=== PATIENT | male | born 1970 | race Caucasian/White ===

== ENCOUNTER → 2016-07-30 | Outpatient (CLI) | payer OTHER ==
[2016-07-30 16:54] LABS: APPEARANCE CLEAR/COLORLESS
[2016-07-30 17:01] LABS: RED CELL DILUTION 1
[2016-07-30 17:02] LABS: CSF EOSINOPHILS 0 % (0-25); MONO RAW COUNT 1; MONONUCLEAR WBC'S 100 % (50-90); POLYNUCLEAR WBC'S 0 % (0-3); RED CELL AREA COUNTED 18; RED CELL COUNT 2 /MM^3 (0-1); WBC AREA COUNTED 18; WBC DILUTION 1; WHITE CELL COUNT 0 /MM^3 (0-5); WHITE CELL RAW COUNT 0
[2016-08-02 01:23] LABS: Albumin, Serum 4.6 g/dL (3.5-4.9); Synthesis Rate IgG, CSF -5.8 mg/24 h (-9.9-3.3)
[2016-08-02 18:50] LABS: SPINAL FLD COMMENT NP.
== END | disposition home or self-care (01) ==
LOC: RAD 14:33
PROVIDERS: Internal Medicine Endocrinology, Diabetes & Metabolism; Nurse Practitioner Family
PROC: 009U3ZZ Drainage of Spinal Canal, Percutaneous Approach (ICD-10-PCS; principal; 2016-07-30)
DX: G43.019 Migraine without aura, intractable, without status migrainosus (principal)
CPT/HCPCS: 62270; 77003; 82040 90; 82042 90; 82164 90; 82784 90; 82945; 83916 90; 84157; 86592 90; 86617 90; 86618 90; 87070; 87205; 89051

== ENCOUNTER 2016-09-19 20:03 | Emergency (ER) | payer OTHER ==
[~2016-09-19] VITALS: Ht 172.7 cm; Wt 86.1 kg
[2016-09-19] MEDS ORDERED: ERYTHROMYCIN O3.5 GM RIGHT EYE (20:41)
[2016-09-19] MEDS ORDERED: TOBREX5 ML RIGHT EYE (20:41)
[2016-09-19 20:56] VITALS: BP 136/99
== END 2016-09-19 20:57 | disposition home or self-care (01) ==
LOC: EXP 20:03 → EME 20:03 → EXP 20:57
DX: T15.11XA Foreign body in conjunctival sac, right eye, initial encounter (principal); S05.01XA Injury of conjunctiva and corneal abrasion without foreign body, right eye, initial encounter; Z87.891 Personal history of nicotine dependence
CPT/HCPCS: 99281; 99284